=== PATIENT | male | born 1970 | race Caucasian/White ===

== ENCOUNTER 2019-12-25 18:56 | Emergency (ER) | payer OTHER, SELFPAY ==
--- NOTE | ~2019-12-25 | XR_ITS ---
EXAMINATION: XR hand LT min 3V EXAM DATE: 12/25/2019 19:31 INDICATION: Initial encounter following injury, with pain of the left hand. TECHNIQUE: Left hand frontal, lateral and oblique projections obtained and reviewed. There is no jose or study for comparison. FINDINGS: Acute comminuted fractures through the left fifth metacarpal neck/shaft. Closed, posttrauma tic fracture(s). There is overlying soft tissue swelling. No other acute findings. IMPRESSION: Acute comminuted left fifth metacarpal neck/shaft fracture. Reviewed, dictated and finalized at location A.
[2019-12-25 18:59] VITALS: BP 147/100; PULSE 68; RESP 18; TEMP 36.6; O2SAT 99
--- NOTE | 2019-12-25 19:25 | PC.NURSE ---
wound cleansed thoroughly with sterile saline. anbx gauze, telfa and kerlix wrap placed per nurse practitioner's request
--- NOTE | 2019-12-25 19:43 | ED.UPPEXIN ---
HPI - Extremity Injury (Upper) General Chief Complaint: Extremity Injury, Upper Stated Complaint: left hand lac Time Seen by Provider: 12/25/19 19:00 Source: patient Mode of arrival: ambulatory Limitations: no limitations History of Present Illness HPI narrative: This is a 49 year old male that presents to the ER for laceration to left hand sustained just prior to arrival. Reports he was trying to fix his garage door and the metal spring cut his hand. Reports irregular laceration and pain to the area. Reports he is up to date on tetanus. Denies decreased ROM or numbness. Related Data Allergies Allergy/AdvReac Type Severity Reaction Status Date / Time No Known Allergies Allergy Verified 12/25/19 19:31 Review of Systems Review of Systems: Narrative: CONSTITUTIONAL: Denies fever SKIN: Reports laceration MUSCULOSKELETAL: Reports joint pain, and myalgia. NEUROLOGIC: Denies numbness All systems reviewed & are unremarkable except as noted in HPI and below PMFSH Past Medical History Medical History (Updated 12/25/19 @ 22:34 by Maira Abreu PA-C) History of hyperlipidemia Family History Family History (Updated 04/23/16 @ 23:21 by DOCTOR UNKNOWN) Mother Patient's mother is in good health Sibling Patient's sister is in good health Patient's brother is in good health Father Family history of malignant neoplasm Patient's father is Social History Social History Smoking status: Heavy tobacco smoker Alcohol intake: current Exam Narrative: Exam Narrative: GENERAL: Well-appearing, well-nourished, and in no acute distress. HEAD: Normocephalic, atraumatic. EYES: EOMI. EXTREMITIES: Normal range of motion. No edema. Left hand dorsal surface with 4cm irregular laceration into subcutaneous tissue with muscle exposed. SKIN: Warm, dry, no rash. NEURO: No focal deficits. Alert and oriented x3. PSYCH: Normal mood and affect Course Consultations Consultation #1: Spoke with Dr. Brown about patient and work-up will follow-up in clinic tomorrow Date: 12/25/19 Time: 22:32 Vital Signs Vital signs: Vital Signs Temperature 97.9 F 12/25/19 18:59 Pulse Rate 68 12/25/19 18:59 Respiratory Rate 18 12/25/19 18:59 Blood Pressure 147/100 H 12/25/19 18:59 Pulse Oximetry 99 12/25/19 18:59 Temperature 97.9 F 12/25/19 18:59 Pulse Rate 68 12/25/19 18:59 Respiratory Rate 18 12/25/19 18:59 Blood Pressure 147/100 H 12/25/19 18:59 Pulse Oximetry 99 12/25/19 18:59 Procedures Laceration Laceration 1: Date: 12/25/19 Time: 22:19 Site: hand Side (If applicable): left Size (cm): 4 Description: irregular Depth: involves muscle layer Local Anesthetic: lidocaine 1% Amount of anesthesia used (mL): 4 Pre-repair: irrigated extensively ====== Skin Level ====== Skin layer closed with: nylon Size (cm): 5-0 Number of sutures: 8 Technique: simple, interrupted and horizontal mattress ====== Subcutaneous Layer ====== ====== Muscle Layer ====== ====== Tendon Layer ====== Dressing: Covered with antibiotic ointment, Telfa, Kerlix and Coban Orthopedic Splinting/Casting Injury #1: Splinting/Casting Date: 12/25/19 Splinting/Casting Time: 22:21 Side: left Upper Extremity Injury Location: hand Upper Extremity Immobilizer: ulnar gutter Splint: customized in ED OCL: ulnar gutter Pre-Procedure Neuro Vascular Exam: normal Post-Procedure Neuro Vascular Exam: normal Other Orthopedic Equipment: other (sling) MDM - Extremity Injury (Upper) MDM Narrative Medical decision making narrative: Patient presents the emergency department for laceration to left hand sustained just prior to arrival. Patient with irregular laceration with contused tissue. Left hand x-ray shows an acute comminuted left fifth metacarpal neck/sha
[2019-12-25] MEDS: ceFAZolin SODIUM 1 GM VIAL IM (20:27)
[2019-12-25] MEDS: WATER, STERILE FOR INJECTION 10 ML VIAL XX (20:28)
[2019-12-25] MEDS: LIDOCAINE HCL 1% LOCAL INJ 20 ML VIAL INFILTRATE (20:28)
[2019-12-25] MEDS: IBUPROFEN 600 MG TABLET PO (22:41)
[2019-12-25 22:43] VITALS: BP 151/90; PULSE 70; RESP 18; O2SAT 99
== END 2019-12-25 22:45 | disposition home or self-care (01) ==
PROVIDERS: Emergency Provider Emergency Medicine
DX: S62.337B Displaced fracture of neck of fifth metacarpal bone, left hand, initial encounter for open fracture (principal); W26.8XXA Contact with other sharp object(s), not elsewhere classified, initial encounter; E78.5 Hyperlipidemia, unspecified
CPT/HCPCS: 12002; 29125; 73130; 96372; 99284; A4565; A9270; J0690

== ENCOUNTER 2021-01-19 03:35 | Emergency (ER) | payer OTHER, SELFPAY ==
--- NOTE | ~2021-01-19 | CT_ITS ---
EXAMINATION: CT abdomen pelvis wo con DATE: 01/19/2021 04:06 INDICATION: Left flank pain. TECHNIQUE: Computed tomography (CT) of the abdomen and pelvis was performed without intravenous contr ast. Automated exposure control and iterative reconstruction technique were employed. The dose-length product was 472.69 mGy-cm. COMPARISON: None. FINDINGS: The visualized portions of the lung bases demonstrate mild atelectasis. No pleural effusion . The heart size is normal. No pericardial effusion. There is a small sliding hiatal hernia. The live r, gallbladder, spleen, pancreas, adrenal glands are normal. There are 4 mm and 1 mm stones in right kidney. There are approximately 7 stones in left kidney measuring up to 9 mm. There is mild left hydr onephrosis and proximal hydroureter. There is a 5 mm stone in left ureter where it crosses the iliac vessels. The prostate is mildly enlarged. There are no dilated loops of bowel. The appendix is normal . There are no pathologically enlarged lymph nodes. There is no free intraperitoneal fluid. There is mild thoracolumbar spondylosis. IMPRESSION: 1. 5 mm stone in mid left ureter where it crosses the iliac vessels with mild left hydronephrosis and proximal hydroureter. 2. Bilateral nonobstructing kidney stones. Reviewed, dictated and finalized at location A. IMPRESSION: 1. 5 mm stone in mid left ureter where it crosses the iliac vessels with mild l eft hydronephrosis and proximal hydroureter. 2. Bilateral nonobstructing kidney stones.
[2021-01-19 03:38] VITALS: BP 145/91; PULSE 82; RESP 16; TEMP 36.4; O2SAT 100
[2021-01-19 03:50] VITALS: BP 145/91; PULSE 82; RESP 18; TEMP 36.4; O2SAT 100
--- NOTE | 2021-01-19 03:54 | PC.NURSE ---
Pt to restroom to provide UA.
--- NOTE | 2021-01-19 03:54 | ED.GENADULT ---
HPI - General Adult General Chief complaint: Abdominal Pain Stated complaint: L SIDE PAIN Time Seen by Provider: 01/19/21 03:47 History of Present Illness HPI narrative: Patient is a 51-year-old gentleman who presents the emergency department with chief complaint of left flank pain. The patient states that he started having a sharp-like pain in his left flank radiates somewhat to the left lower quadrant patient stated started on Tuesday reports that he has had some nausea no vomiting reports that is unable to get comfortable with the pain states that is not really worsened by movement or improved by movement. Patient denies fever denies chills denies diarrhea. The patient states it feels as though he needs to have a bowel movement but has not been able to have a bowel movement. Patient reports he is a no prior history of kidney stones. The patient reports that the pain was improved with an 800 mg ibuprofen that he took on Tuesday Related Data Home Medications Medication Instructions Recorded Confirmed atorvastatin 01/19/21 ibuprofen 01/19/21 Allergies Allergy/AdvReac Type Severity Reaction Status Date / Time No Known Allergies Allergy Verified 12/25/19 19:31 Review of Systems Review of Systems: Narrative: A 10 system review of systems was completed on the patient and is negative except for what is stated in the HPI. Nursing and ancillary documentation was reviewed. [facility] Past Medical History Medical History History of hyperlipidemia Family History Family History Mother Patient's mother is in good health Sibling Patient's sister is in good health Patient's brother is in good health Father Family history of malignant neoplasm Patient's father is Social History Social History Smoking status: Heavy tobacco smoker Alcohol intake: current Exam Narrative: Exam Narrative: GENERAL: Well-appearing, well-nourished, and in no acute distress. HEAD: Normocephalic, atraumatic. EYES: PERRLA and EOMI. ENT: Nares clear, no rhinorrhea or epistaxis. Mucous membranes moist. NECK: Supple. CHEST: Clear to auscultation. No respiratory distress. HEART: Regular rate and rhythm. No murmur heard. Normal peripheral pulses. ABDOMEN: Soft, nontender, nondistended, normal active bowel sounds. EXTREMITIES: Normal range of motion. No edema. SKIN: Warm, dry, no rash. NEURO: No focal deficits. Alert and oriented x3. PSYCH: Normal mood and affect. Course Course Emergency Course: CT scan showed evidence of a 6 mm mid to distal left ureter with mild left hydronephrosis. The patient is feeling much better at this time Vital Signs Vital signs: Vital Signs Temperature 36.4 C L 01/19/21 03:38 Pulse Rate 82 01/19/21 03:38 Respiratory Rate 16 01/19/21 03:38 Blood Pressure 145/91 H 01/19/21 03:38 Pulse Oximetry 100 01/19/21 03:38 Temperature 36.4 C L 01/19/21 04:20 Pulse Rate 70 01/19/21 05:22 Respiratory Rate 18 01/19/21 05:22 Blood Pressure 131/82 01/19/21 05:22 Pulse Oximetry 94 01/19/21 05:22 Medical Decision Making Vital Signs Vital Signs: Vital Signs Temperature 36.4 C L 01/19/21 03:38 Pulse Rate 82 01/19/21 03:38 Respiratory Rate 16 01/19/21 03:38 Blood Pressure 145/91 H 01/19/21 03:38 Pulse Oximetry 100 01/19/21 03:38 Temperature 36.4 C L 01/19/21 04:20 Pulse Rate 70 01/19/21 05:22 Respiratory Rate 18 01/19/21 05:22 Blood Pressure 131/82 01/19/21 05:22 Pulse Oximetry 94 01/19/21 05:22 Lab Data Result diagrams: 01/19/21 04:32 01/19/21 04:32 Labs: Lab Results 01/19/21 01/19/21 01/19/21 Range/Units 03:56 04:32 04:32 WBC 12.9 H (4.5-10.0) K/mm3 RBC 4.68 (4.6-6.20) M/mm3 Hgb 15.1 (14.
--- NOTE | 2021-01-19 03:58 | PC.NURSE ---
Pt in room from restroom. Steady gait noted.
--- NOTE | 2021-01-19 04:00 | PC.NURSE ---
Pt to radiology via cart.
--- NOTE | 2021-01-19 04:14 | PC.NURSE ---
Pt returned from radiology.
[2021-01-19 04:19] LABS: Add Urine Microscopic? YES; Appearance Urine Cloudy (Clear); Bacteria Urine Trace /hpf; Bilirubin Urine Negative (Negative); Blood Urine 3+ (Negative); Color Urine Yellow (Yellow); Glucose Urine UA Negative (Negative); Ketones Urine Negative (Negative); Leukocyte Esterase Ur Negative LEU/UL (Negative); Mucus Urine Few /lpf; Nitrate Urine Negative (Negative); Protein Urine 1+ mg/dL (Negative); RBC Urine >75 /hpf (0-2); Squamous Epithelial Cell Urine Rare /hpf (Few)
[2021-01-19 04:20] VITALS: BP 145/91; PULSE 82; RESP 18; TEMP 36.4; O2SAT 100
[2021-01-19] MEDS: SODIUM CHLORIDE 0.9% IV 1,000 ML 999 ML IV CONT (04:26)
[2021-01-19] MEDS: ONDANSETRON INJ 4 MG/2 ML VIAL IV PUSH (04:31)
[2021-01-19] MEDS: MORPHINE SULFATE (*CRX) 4 MG/ML INJ IV PUSH (04:31)
[2021-01-19 04:51] LABS: Basophils Percent Auto 0.2 % (0.2-1.2); Eosinophils Absolute Auto 0.2 K/mm3 (0-0.3); Eosinophils Percent Auto 1.4 % (0-4.4); Hematocrit 45.4 % (42.0-52.0); Hemoglobin 15.1 g/dL (14.0-18.0); Immature Granulocyte Absolute 0.05 K/mm3 (0.00-0.031); Immature Granulocyte Percent A 0.4 % (0-0.5); Lymphocytes Absolute Auto 2.61 K/mm3 (0.9-3.2); Lymphocytes Percent Auto 20.2 % (18.3-44.2); Mean Corpuscular HGB Conc 33.3 g/dl (32-36); Mean Corpuscular Hemoglobin 32.3 pg (26-34); Mean Platelet Volume 9.5 fl (7.4-10.4); Monocytes Absolute Auto 0.9 K/mm3 (0.1-0.6); Monocytes Percent Auto 7.2 % (2.6-8.5); Neutrophils Absolute Auto 9.1 K/mm3 (1.3-6.7); Neutrophils Percent Auto 70.6 % (45.5-73.1); Platelet Count Result 257 k/mm3 (150-375); Red Blood Count 4.68 M/mm3 (4.6-6.20); Red Cell Distribution Width 13.1 % (11.5-14.5); White Blood Count 12.9 K/mm3 (4.5-10.0)
[2021-01-19 04:53] LABS: Alanine Aminotransferase 17 U/L (4-50); Albumin Level 4.1 g/dL (3.5-5.1); Alkaline Phosphatase 79 U/L (38-126); Anion Gap 4 mmol/L (8-16); Aspartate Amino Transferase 24 U/L (17-59); Bilirubin,Total 0.5 mg/dL (0.2-1.3); Blood Urea Nitrogen 15 mg/dL (9-20); Carbon Dioxide 31 mmol/L (22-30); Chloride 104 mmol/L (98-107); Estimated CRCL calculation 69 ml/min; Estimated Glomerular Filt Rate > 60; Glucose 106 mg/dL (75-110); Lipase 81 U/L (23-300); Potassium 4.1 mmol/L (3.4-5.0); Sodium 139 mmol/L (137-145)
--- NOTE | 2021-01-19 04:53 | PC.NURSE ---
Pt states abdominal pain persists and is rated 5/10 at this time. EDMD notified and states he will place orders.
--- NOTE | 2021-01-19 04:59 | PC.NURSE ---
Senior Production Manager returned to bedside and pt states pain is now a 1-2/10 at this time and is refusing pain medication. Will hold.
[2021-01-19 05:22] VITALS: BP 131/82; PULSE 70; RESP 18; O2SAT 94
--- NOTE | 2021-01-19 05:53 | PC.NURSE ---
Pt continues to deny pain and states he feels much better. Pt updated on poc and advised that he has kidney stones and should strain all urine.
[2021-01-19 06:05] VITALS: BP 128/84; PULSE 73; RESP 16; TEMP 36.9; O2SAT 97
== END 2021-01-19 06:12 | disposition home or self-care (01) ==
PROVIDERS: Emergency Provider Emergency Medicine
DX: N13.2 Hydronephrosis with renal and ureteral calculous obstruction (principal); E78.5 Hyperlipidemia, unspecified; F17.200 Nicotine dependence, unspecified, uncomplicated
CPT/HCPCS: 36415; 74176; 80053; 81001; 83690; 85025; 87086; 96361; 96374; 96375; 99284; J2270; J2405; J7030

== ENCOUNTER 2021-01-20 15:05 | Outpatient (CLI) | payer OTHER, SELFPAY ==
--- NOTE | ~2021-01-20 | XR_ITS ---
XR abdomen/kub 1V 01/20/2021 15:20 Indication: Left ureteral stone Procedure: KUB Comparison: CT dated 01/19/2021 Findings: Bowel gas pattern is nonobstructive. There are left renal stones. There is a ossific densit y overlying the left sacrum which may correspond to the ureteral stone seen on CT. No acute osseous a bnormality. Impression: 1: Probable left ureteral stone overlying the sacrum. 2: Left nephrolithiasis. Reviewed, dictated and finalized at location B. Impression: 1: Probable left ureteral stone overlying the sacrum. 2: Left nephrolithiasis.
== END 2021-01-20 15:06 | disposition home or self-care (01) ==
PROVIDERS: Visit Provider Nurse Practitioner Adult Health
DX: N20.1 Calculus of ureter (principal); N20.0 Calculus of kidney
CPT/HCPCS: 74018

== ENCOUNTER → 2021-01-27 01:56 | Outpatient (CLI) | payer OTHER, SELFPAY ==
[2021-01-27 19:24] LABS: SARS-CoV-2 RNA PCR Negative
== END ==
PROVIDERS: PCP Physician Assistant; Visit Provider Urology
DX: Z01.812 Encounter for preprocedural laboratory examination (principal); Z20.822 Contact with and (suspected) exposure to COVID-19
CPT/HCPCS: C9803; U0003; U0005

== ENCOUNTER 2021-01-27 09:39 | Outpatient (CLI) | payer OTHER, SELFPAY ==
[2021-01-27 10:26] LABS: INR 0.9; Prothrombin Time 13.1 Seconds (11.1-14.7)
[2021-01-27 10:27] LABS: Partial Thromboplastin Time 28.2 SECONDS (22.3-36.8)
--- NOTE | 2021-01-27 14:30 | ECG_ITS ---
Measurements Intervals [place] Rate: 76 P: 36 OR: 148 QRS: 32 QRSD: 103 T: 7 QT: 353 QTc: 398 Interpretive Statements SINUS RHYTHM BORDERLINE ST-T WAVE ABNORMALITY- INFERIOR LEADS BASELINE ARTIFACT- I, III, AVR, AVL BORDERLINE ECG Electronically Signed On 01-27-2021 11:04:54 CDT by Varun Dior D.O.
== END 2021-01-27 09:40 | disposition home or self-care (01) ==
LOC: ANHSURGERY 09:43
PROVIDERS: PCP Physician Assistant; Visit Provider Urology
DX: Z01.818 Encounter for other preprocedural examination (principal); N20.1 Calculus of ureter; Z86.39 Personal history of other endocrine, nutritional and metabolic disease
CPT/HCPCS: 36415; 85610; 85730; 93005

== ENCOUNTER 2021-01-30 01:39 | Day surgery (SDC) | payer OTHER, SELFPAY ==
[2021-01-26 09:26] VITALS: BMI 26.5
--- NOTE | 2021-01-29 10:24 | WPDANESEPPF ---
Anes - Initial Pre Proc Eval Procedure: Operation Date: 01/30/21 08:30 Proposed Procedures p Left Ureteral Extracorporeal Shock Wave Lithotripsy - Mohit Boo MD Date/Time: 01/29/21 10:24 Surgeon: Mohit Boo MD Pre Op Diagnosis: left midureteral stone Patient Data Age: 51 Gender: M Height: 1.78 m Weight: 83.9 kg Allergies Allergy/AdvReac Type Severity Reaction Status Date / Time No Known Allergies Allergy Verified 01/26/21 09:25 Home Medications Medication Instructions Recorded Confirmed Type atorvastatin 40 mg PO HS 01/19/21 History tamsulosin [Flomax] 0.4 mg PO HS #10 cap 01/19/21 01/26/21 Rx Patient hx anesthesia problems: none Family hx anesthesia problems: none PMFSH Past Medical History Medical History History of hyperlipidemia Family History Family History Mother Patient's mother is in good health Sibling Patient's sister is in good health Patient's brother is in good health Father Family history of malignant neoplasm Patient's father is Social History Social History Smoking packs per day: 1 Smoking cigarettes per day: 20.0 Years smoked: 20 Smoking pack-years: 20.00 Smoking status: Current every day smoker Tobacco type: cigarettes Alcohol intake: current Drinks per week: 10 Substance use: never Substance use type: does not use Living arrangements: with family Spiritual care concerns: No Anes - Eval Final PreProcedure Day of Procedure 01/29/21 10:24 Patient weight: overweight Heart: regular rate and rhythm Lungs: clear to auscultation and normal air movement Airway: Mallampati scale class II Neurological: alert and oriented Last oral intake: >/= 8 hours ASA classification: III Emergent: no Anesthetic plan: proceed Anesthesia type and monitoring: general LMA and standard monitoring Informed Consent: The patient's anesthetic plan and its attendant risks and benefits were discussed with the patient/family/POA. Questions were solicited and answers provided to the satisfaction of the patient/family/POA.
[2021-01-30] VITALS (8 sets, daily range): BP systolic 112–168; BP diastolic 73–101; PULSE 58–81; RESP 10–20; TEMP 36.4–36.9; O2SAT 97–100
--- NOTE | ~2021-01-30 | XR_ITS ---
EXAMINATION: XR abdomen/kub 1V INDICATION: Left ureteral stone TECHNIQUE: Supine views of the abdomen were obtained on 2 radiographs. COMPARISON: 01/20/2021 FINDINGS: There is a questionable 4 mm stone of the distal left ureter overlying the left sacrum. Sto julio césar in the mid and lower left kidney measure 8 mm and 5 mm, respectively. There is a 5 mm stone of th e right mid kidney. The bowel gas pattern is normal. There are multiple phleboliths of the pelvis. IMPRESSION: 1. Possible left distal ureteral stone. 2. Bilateral nephrolithiasis. Reviewed, dictated and finalized at location A.
--- NOTE | 2021-01-30 06:20 | WPDHPUPDATE1 ---
History and Physical Update Update Date/Time: 01/30/21 06:20 History and Physical has been reviewed, including an updated exam of the patient. There are NO changes in the patient's condition. Risks, benefits, and alternatives have been discussed and questions answered. Patient agrees to proceed with procedure.
[2021-01-30] MEDS: LACTATED RINGERS 1,000 ML 30 ML IV CONT (07:20)
[2021-01-30] MEDS: ceFAZolin 2 GM/D5W 50 ML 2 GM/50 ML BAG IVPB (08:25)
--- NOTE | 2021-01-30 08:28 | SUR.PREOP ---
films at foot of bed denied need to void
--- NOTE | 2021-01-30 08:39 | PM.PROC ---
Procedure Note - Detailed Date of procedure: 01/30/21 Pre-op diagnosis: Left mid-ureteral stone Post-op diagnosis: same Procedure performed: Left ESWL Description of procedure: The patient was brought to the operative suite where he was placed in the supine position on the Dornier lithotripsy table. The focal point of the lithotripter was placed at a 5-6mm left mid-ureteral calculus overlying the sacrum. A total of 3000 shocks were delivered at a power setting of 5. There appeared to be good fragmentation of the stone. The patient tolerated the procedure well and was taken to the recovery room in good condition. Anesthesia: GLMA Surgeon: Mohit Boo MD Estimated blood loss (mL): 0 Drains: No Packing: No Pathology: none sent Complications: No immediate complications Condition: stable Disposition: PACU
== END 2021-01-30 10:55 | disposition home or self-care (01) ==
PROVIDERS: PCP Physician Assistant; Visit Provider Urology
PROC: (CPT 50590; principal; 2021-01-30 08:30)
DX: N20.1 Calculus of ureter (principal); F17.210 Nicotine dependence, cigarettes, uncomplicated
CPT/HCPCS: 50590; 36415; 74018; 85610; 85730; 93005; C9803; J0690; J2250; J2405; J2704; J3010; J7120; U0003; U0005

== ENCOUNTER 2021-02-25 16:11 | Outpatient (CLI) | payer OTHER, SELFPAY ==
--- NOTE | ~2021-02-25 | XR_ITS ---
XR abdomen/kub 1V DATE: 02/25/2021 16:30 INDICATION: Left ureteral stone TECHNIQUE: AP projection, 2 views COMPARISON: 01/30/2021, 01/20/2021 KUB KUB / CT abdomen pelvis noncontrast examination FINDINGS: There are multiple calcifications overlying the lower pole left kidney and at least one hussain cification overlying the mid right kidney. Possible calcified calculus overlying the left ureter at the S2 level. Noncontrast CT abdomen pelvis would be more definitive. The psoas shadows are intact. No visceromegaly is evident. There is no evidence of bowel obstruction. The lower lung zones are clear. Heart size appears normal. Mild scoliosis and degenerative change of the thoracic and lumbar spine. IMPRESSION: Possible calcified left ureteral calculus at S2 level; noncontrast CT abdomen pelvis woul d be more definitive Bilateral nephrolithiasis Reviewed, dictated and finalized at Location A. Reviewed, dictated and finalized at location A. IMPRESSION: Possible calcified left ureteral calculus at S2 level; noncontrast CT abdomen pelvis would be more definitive Bilateral nephrolithiasis
== END 2021-02-25 16:12 | disposition home or self-care (01) ==
LOC: ANHIMG 16:16
PROVIDERS: PCP Physician Assistant; Visit Provider Nurse Practitioner Adult Health
DX: N20.0 Calculus of kidney (principal)
CPT/HCPCS: 74018

== ENCOUNTER 2022-04-08 07:36 | Emergency (ER) | payer OTHER, SELFPAY ==
--- NOTE | ~2022-04-08 | CT_ITS ---
EXAMINATION: CT abdomen pelvis wo con DATE: 04/08/2022 08:24 INDICATION: Nephrolithiasis. TECHNIQUE: Computed tomography (CT) of the abdomen and pelvis was performed without intravenous contr ast. Automated exposure control and iterative reconstruction technique were employed. The dose-length product was 354.78 mGy-cm. COMPARISON: CT abdomen and pelvis 01/19/2021 FINDINGS: The visualized portions of the lung bases demonstrate mild atelectasis on the left. No pleu ral effusion. The heart size is normal. No pericardial effusion. The liver, gallbladder, spleen, panc reas, and adrenal glands are normal. There is a 5 mm stone in right kidney. There are 5 mm and 11 mm stones in left kidney. The prostate is mildly enlarged. There are no dilated loops of bowel. The appe ndix is normal. There are no pathologically enlarged lymph nodes. There is no free intraperitoneal fl uid. There is mild lumbar spondylosis. IMPRESSION: 1. Bilateral nonobstructing kidney stones. Reviewed, dictated and finalized at location A.
--- NOTE | ~2022-04-08 | XR_ITS ---
XR abdomen/kub 1V DATE: 04/08/2022 09:08 INDICATION: Dysuria. Kidney stones. TECHNIQUE: Supine AP projection, 2 views COMPARISON: 04/08/[address] abdomen pelvis 02/25/2021 KUB FINDINGS: Again noted is an approximately 5 mm calcified calculus of the mid right kidney and possibl e 5 mm and 11 mm calcified calculi of the lower pole of the left kidney. Bilateral calcified pelvic phleboliths. The psoas shadows are intact. No visceromegaly is detected. No evidence of bowel obstruction. IMPRESSION: Bilateral nephrolithiasis, relatively stable since 02/25/2021 Reviewed, dictated and finalized at Location A. Reviewed, dictated and finalized at location A.
[2022-04-08 07:38] VITALS: BP 125/80; PULSE 117; RESP 18; TEMP 36.8; O2SAT 98
--- NOTE | 2022-04-08 07:51 | ED.MALEGU ---
HPI - Male Genitourinary General Chief complaint: Urogenital-Male Stated complaint: Fever, Difficulty with Urination Time Seen by Provider: 04/08/22 07:51 History of Present Illness HPI Narrative: Patient is a 52-year-old male with a history of nephrolithiasis, urinary tract infection, sepsis, presenting to the emergency department for evaluation of fever, myalgias, difficulty with urination. Patient reports that he has felt unwell over the past 36 hours. Patient reports subjective fever, chills, myalgias, denies any sharp flank pain. Does report he is having some difficulty with urination including hesitancy. Patient has not noticed any hematuria. Patient reports history of sepsis from a kidney stone and urinary tract infection for which he was hospitalized approximately a year ago. Patient did take 400 mg ibuprofen prior to arrival. He reports mild rhinorrhea but denies cough, sore throat, sinus congestion. He reports history of asymptomatic COVID infection approximately a year ago for which she did not require hospitalization. Related Data Home Medications Medication Instructions Recorded Confirmed atorvastatin 40 mg tablet 40 mg PO HS 01/19/21 Allergies Allergy/AdvReac Type Severity Reaction Status Date / Time No Known Allergies Allergy Verified 04/08/22 07:55 Review of Systems Review of Systems: CONSTITUTIONAL: Denies fever, chills, or sweats. EYES: Denies visual changes, redness, or discharge. ENT: Denies rhinorrhea, congestion, sore throat, or otalgia. CARDIOVASCULAR: Denies chest pain, palpitations, or edema. RESPIRATORY: Denies cough or dyspnea. GASTROINTESTINAL: Denies abdominal pain, nausea, vomiting, or diarrhea. GENITOURINARY: Denies dysuria or hematuria. SKIN: Denies rash or itching. MUSCULOSKELETAL: Denies back pain, joint pain, or myalgia. NEUROLOGIC: Denies headache, numbness, or weakness. ON LICENSE OF [facility] Past Medical History Medical History History of hyperlipidemia Family History Family History Mother Patient's mother is in good health Sibling Patient's sister is in good health Patient's brother is in good health Father Family history of malignant neoplasm Patient's father is Social History Social History Smoking packs per day: 1 Smoking cigarettes per day: 20.0 Years smoked: 20 Smoking pack-years: 20.00 Smoking status: Current every day smoker Tobacco type: cigarettes Alcohol intake: current Drinks per week: 10 Substance use: never Substance use type: does not use Spiritual care concerns: No Course Vital Signs Vital signs: Vital Signs Temperature 36.8 C 04/08/22 07:38 Pulse Rate 117 H 04/08/22 07:38 Respiratory Rate 18 04/08/22 07:38 Blood Pressure 125/80 04/08/22 07:38 Pulse Oximetry 98 04/08/22 07:38 Oxygen Delivery Room Air 04/08/22 07:38 Temperature 36.8 C 04/08/22 07:38 Pulse Rate 105 H 04/08/22 08:46 Respiratory Rate 18 04/08/22 08:46 Blood Pressure 131/83 04/08/22 08:46 Pulse Oximetry 99 04/08/22 08:46 Oxygen Delivery Room Air 04/08/22 07:38 MDM - Male Genitourinary MDM Narrative Medical decision making narrative: Patient presenting to the emergency department for evaluation of difficulty with urination, fever and myalgias. At the time of assessment, patient is mildly tachycardic, he is afebrile and normotensive. IV access obtained and labs are drawn. Concern for sepsis versus UTI versus pyelonephritis versus cystitis versus prostatitis. Patient with leukocytosis without anemia, no acute kidney injury. Urinalysis is concerning for urinary tract infection, CT scan was obtained and shows bilateral nonobstructing kidney stones. Dr. Patinos with urology was present in the emergency department evaluating a
--- NOTE | 2022-04-08 07:53 | ECG_ITS ---
Measurements Intervals [place] Rate: 103 P: 48 AK: 153 QRS: 12 QRSD: 88 T: 4 QT: 308 QTc: 404 Interpretive Statements SINUS TACHYCARDIA POSSIBLE LEFT ATRIAL ENLARGEMENT BORDERLINE ST-T WAVE ABNORMALITY- INFERIOR LEADS BASELINE ARTIFACT- I, II, III, V3 BORDERLINE ECG Electronically Signed On 04-08-2022 9:24:28 CDT by Varun Dior D.O.
[2022-04-08 07:59] LABS: Appearance Urine Cloudy (Clear); Bilirubin Urine Negative (Negative); Blood Urine 2+ (Negative); Color Urine Yellow (Yellow); Glucose Urine UA Negative (Negative); Ketones Urine Negative (Negative); Leukocyte Esterase Ur 1+ LEU/UL (Negative); Nitrate Urine Negative (Negative); Protein Urine 1+ mg/dL (Negative); Specific Grav Ur 1.025 (1.001-1.035); pH Urine 6.5 (5.0-9.0)
[2022-04-08 08:02] LABS: Bacteria Urine 2+ /hpf; Mucus Urine Heavy /lpf; WBC Urine 51-75 /hpf
[2022-04-08 08:03] LABS: Add Urine Microscopic? YES
[2022-04-08] MEDS: ACETAMINOPHEN 500 MG TABLET 1000 MG PO (08:15)
[2022-04-08] MEDS: SODIUM CHLORIDE 0.9% IV 1,000 ML 999 ML IV CONT (08:15)
[2022-04-08 08:20] LABS: Basophils Percent Auto 0.2 % (0.2-1.2); Eosinophils Absolute Auto 0.1 K/mm3 (0-0.3); Eosinophils Percent Auto 0.7 % (0-4.4); Hematocrit 43.3 % (42.0-52.0); Hemoglobin 14.4 g/dL (14.0-18.0); Immature Granulocyte Absolute 0.08 K/mm3 (0.00-0.031); Immature Granulocyte Percent A 0.5 % (0-0.5); Lymphocytes Absolute Auto 1.23 K/mm3 (0.9-3.2); Lymphocytes Percent Auto 7.8 % (18.3-44.2); Mean Corpuscular HGB Conc 33.3 g/dl (32-36); Mean Corpuscular Hemoglobin 32.4 pg (26-34); Mean Corpuscular Volume 97.3 fl (80-100); Mean Platelet Volume 9.4 fl (7.4-10.4); Monocytes Absolute Auto 0.9 K/mm3 (0.1-0.6); Monocytes Percent Auto 5.4 % (2.6-8.5); Neutrophils Absolute Auto 13.5 K/mm3 (1.3-6.7); Neutrophils Percent Auto 85.4 % (45.5-73.1); Platelet Count Result 208 k/mm3 (150-375); Red Blood Count 4.45 M/mm3 (4.6-6.20); Red Cell Distribution Width 13.2 % (11.5-14.5); White Blood Count 15.8 K/mm3 (4.5-10.0)
[2022-04-08 08:30] LABS: Alanine Aminotransferase 18 U/L (6-50); Albumin Level 4.1 g/dL (3.5-5.1); Alkaline Phosphatase 86 U/L (38-126); Anion Gap 5 mmol/L (8-16); Aspartate Amino Transferase 20 U/L (17-59); Bilirubin,Total 0.5 mg/dL (0.2-1.3); Blood Urea Nitrogen 15 mg/dL (9-20); Calcium 8.3 mg/dL (8.4-10.2); Carbon Dioxide 23 mmol/L (22-30); Chloride 108 mmol/L (98-107); Estimated CRCL calculation 89 ml/min; Estimated Glomerular Filt Rate > 60; Glucose 115 mg/dL (65-110); Potassium 4.4 mmol/L (3.4-5.0); Sodium 136 mmol/L (137-145)
[2022-04-08 08:40] VITALS: BP 126/82; PULSE 107; RESP 21; O2SAT 98
[2022-04-08 08:46] VITALS: BP 131/83; PULSE 105; RESP 18; O2SAT 99
--- NOTE | 2022-04-08 08:52 | WPDURCON ---
Assessment and Plan Assessment and plan (1) Bilateral kidney stones: Code(s): N20.0 - Calculus of kidney Status: Acute (2) Acute prostatitis: Code(s): N41.0 - Acute prostatitis Status: Acute Assessment and Plan: Clinical presentation consistent with acute prostatitis. His kidney stones are nonobstructive and, I suspect, not contributing to his overall picture of infection at this point. Agree with admission and empirically starting ceftriaxone. I will also add tamsulosin (short term) to enhance bladder emptying in the face of probable prostate swelling leading to difficulty voiding. We discussed lithotripsy for his nonobstructing kidney stones at an elective time. Urology Consult Note HPI Date Seen: 04/08/22 Primary Care Provider: Shanda Cheney, PA Consult Narrative Narrative: Ramon Harris is a 52 year old male, known to me as result of lithotripsy a couple years ago, presents to the ER with a 48 hour history of generalized malaise fever and obstructive voiding symptoms. This curve without identifiable precipitating injury or strain. Somewhat surprisingly, he has had little irritable voiding symptoms but clearly perceives difficulty emptying. evaluation in the emergency department reveals infected urine with a leukocytosis. A CT scan of the abdomen and pelvis shows bilateral nonobstructed kidney stones. Review of Systems Cardiovascular: Cardiovascular: Denies chest pain, Denies lightheadedness, Denies palpitations and Denies dyspnea Respiratory: Respiratory: Denies dyspnea Gastrointestinal: Gastrointestinal: Denies diarrhea, Denies nausea and Denies vomiting Genitourinary: Genitourinary: Denies hematuria, Reports oliguria, Denies dysuria, Denies flank pain and Reports urinary hesitancy Endocrine: Endocrine: Denies palpitations PMFSH Past Medical History Medical History History of hyperlipidemia Family History Family History Mother Patient's mother is in good health Sibling Patient's sister is in good health Patient's brother is in good health Father Family history of malignant neoplasm Patient's father is Social History Social History Smoking packs per day: 1 Smoking cigarettes per day: 20.0 Years smoked: 20 Smoking pack-years: 20.00 Smoking status: Current every day smoker Tobacco type: cigarettes Alcohol intake: current Drinks per week: 10 Substance use: never Substance use type: does not use Spiritual care concerns: No Meds Home Medications and Allergies Home Medications Medication Instructions Recorded Confirmed Type atorvastatin 40 mg tablet 40 mg PO HS 01/19/21 History tamsulosin 0.4 mg capsule (Flomax) 0.4 mg PO HS #10 caps 01/19/21 01/26/21 Rx hydrocodone 5 mg-acetaminophen 325 1 - 2 tablet PO Q6H PRN pain #20 01/30/21 Rx mg tablet tabs sulfamethoxazole 800 1 tablet PO Q12H #6 tabs 01/30/21 Rx mg-trimethoprim 160 mg tablet Allergies Allergy/AdvReac Type Severity Reaction Status Date / Time No Known Allergies Allergy Verified 04/08/22 07:55 Vital Signs Vital Signs - 24 hr 04/08/22 07:38 Temperature 98.2 F Pulse Rate 117 H Respiratory Rate 18 Blood Pressure 125/80 Pulse Oximetry 98 Oxygen Delivery Room Air Exam Const: General: no acute distress Resp: Effort & Inspection: normal respiratory effort GI: Inspection: non-distended GI Palp: No abdominal tenderness and No Guarding due to palpation present (GI) Auscultation: normal bowel sounds Results Labs CBC & Chem 7: 04/08/22 08:01 04/08/22 08:01 Labs: Short CBC 04/08/22 Range/Units 08:01 WBC 15.8 H (4.5-10.0) K/mm3 Hgb 14.4 (14.0-18.0) g/dL Hct 43.3 (42.0-52.0) % Plt Count
[2022-04-08] MEDS: cefTRIAXone 2 GM in SODIUM CHLORIDE 0.9% IV 100 ML 200 ML IVPB (09:02)
[2022-04-08] MEDS: TAMSULOSIN HCL 0.4 MG CAPSULE PO (09:14)
[2022-04-08 09:24] LABS: SARS-CoV-2 RNA PCR Negative
[2022-04-08 09:46] VITALS: BP 120/84; PULSE 89; RESP 0; O2SAT 98
[2022-04-08 10:20] VITALS: BP 116/77; PULSE 95; RESP 16; O2SAT 97
== END 2022-04-08 10:30 | disposition home or self-care (01) ==
PROVIDERS: Emergency Provider Emergency Medicine; PCP Physician Assistant
DX: N41.0 Acute prostatitis (principal); N20.0 Calculus of kidney; Z20.822 Contact with and (suspected) exposure to COVID-19; E78.5 Hyperlipidemia, unspecified; Z86.16 Personal history of COVID-19; F17.210 Nicotine dependence, cigarettes, uncomplicated; Z87.442 Personal history of urinary calculi; R00.0 Tachycardia, unspecified; R94.31 Abnormal electrocardiogram [ECG] [EKG]
CPT/HCPCS: 36415; 74018; 74176; 80053; 81001; 83605; 85025; 87040; 87077; 87086; 87147; 87181; 87186; 93005; 96361; 96365; 99284; A9270; C9803; J0696; J7030; U0003; U0005

== ENCOUNTER 2022-05-17 09:23 | Outpatient (CLI) | payer OTHER, SELFPAY ==
[2022-05-17 10:13] LABS: Prothrombin Time 12.8 Seconds (11.1-14.7)
[2022-05-17 10:14] LABS: Partial Thromboplastin Time 26.8 SECONDS (22.3-36.8)
== END 2022-05-17 09:24 | disposition home or self-care (01) ==
PROVIDERS: PCP Physician Assistant; Visit Provider Urology
DX: N20.0 Calculus of kidney (principal); Z01.818 Encounter for other preprocedural examination
CPT/HCPCS: 36415; 85610; 85730; 87086

== ENCOUNTER 2022-05-21 01:36 | Day surgery (SDC) | payer OTHER, SELFPAY ==
--- NOTE | 2022-05-13 15:54 | SUR.PREOP ---
Report to the Outpatient Waiting Room, entrance under the green pavilion located off [facility], at time 0930 on date 05/21/22. OR Time: 1130. - You and your visitor will be asked to self-screen and do not enter if you have any COVID symptoms. - Only one visitor and NO children visitors are allowed at this time. - The patient visitor is requested to leave or wait in car when not with patient due to restrictions. - A mask is required within the hospital. Patients may have clear liquids (water, carbonated beverages, clear teas, apple juice) until 3 hours prior to surgery with a maximum of 20 ounces. - NO CLEAR LIQUIDS AFTER 0830 - No food from midnight until time of surgery - Infants may have breast milk until 4 hours before surgery, infant formula 6 hours prior to surgery. - Children will be allowed to drink immediately following surgery. If applicable, please bring a bottle or sippy cup to assist with drinking. Juice, water, soda, and popsicles are readily available. For infants on formula, please bring formula the day of surgery. Pacifiers are allowed. Take the following medications with a SIP of water the morning of surgery: HYDROCODONE Please no make-up, nail georgian, hairspray, perfume, deodorant, or body powder the day of surgery. No jewelry (including any body piercings) or valuables the day of surgery, leave them at home. Please take a shower or bath the night before, or the morning of, surgery with an antibacterial soap. Wear comfortable, loose fitting clothing. Children are encouraged to wear pajamas. - Jewelry must be removed prior to entering the operating room. Rings and piercings that are not removed may be cut off. - The hospital will not accept responsibility for valuables. - Please leave all valuables, including medications, at home the day of surgery. If you are going home after surgery, a licensed local company truck driver must drive you home. - NO public transportation without another adult. - We recommend that an adult stay with you for 24 hours following discharge. - We also recommend that you do not drive, make important decision, drink alcoholic beverages, or take any drugs that were not prescribed by your health care provider for at least 24 hours after your discharge time. For Pediatric surgeries, we recommend two adults accompany the child home (only one inside the building at this time). Follow any additional instructions given to you from your surgeon. If you or anyone in your household have experienced Covid symptoms in the past week, please notify your surgeon or the nurse liaison at the phone number below for possible testing. Telephone instructions given to TRICE BALDWIN and asked if any additional questions and then verbalized understanding. Patient advised to call surgeon office or pre surgery nurse liaison [phone] if any additional questions.
[2022-05-13 16:08] VITALS: BMI 25.1
--- NOTE | 2022-05-20 14:54 | P.PNAN_ITS ---
Anes - Initial Pre Proc Eval Procedure: Operation Date: 05/21/22 11:30 Proposed Procedures p Left Extracorporeal Shock Wave Lithotripsy - Mohit Boo MD Date/Time: 05/20/22 14:54 Surgeon: Mohit Boo MD Pre Op Diagnosis: bilat kidney stones Patient Data Age: 52 Gender: M Height: 1.78 m Weight: 79.5 kg Allergies Allergy/AdvReac Type Severity Reaction Status Date / Time No Known Allergies Allergy Verified 05/13/22 16:03 Home Medications Medication Instructions Recorded Confirmed Type hydrocodone 5 mg-acetaminophen 325 1 - 2 tablet PO Q6H PRN pain #20 01/30/21 05/13/22 Rx mg tablet tabs atorvastatin 80 mg tablet 80 mg PO DAILY 05/13/22 05/13/22 History Patient hx anesthesia problems: none Family hx anesthesia problems: none Results Review: All pre-operative results and documents have been reviewed as part of the pre- operative evaluation. [facility] Past Medical History Medical History (Updated 05/20/22 @ 14:54 by Raghavendra Donohue MD) History of hyperlipidemia Nephrolithiasis Family History Family History Mother Patient's mother is in good health Sibling Patient's sister is in good health Patient's brother is in good health Father Family history of malignant neoplasm Patient's father is Social History Social History Smoking packs per day: 1 Smoking cigarettes per day: 20.0 Years smoked: 20 Smoking pack-years: 20.00 Smoking status: Current every day smoker Tobacco type: cigarettes Alcohol intake: current Drinks per week: 10 Substance use: never Substance use type: does not use Spiritual care concerns: No Anes - Eval Final PreProcedure Day of Procedure 05/20/22 14:54 Patient weight: normal Heart: regular rate and rhythm Lungs: clear to auscultation and normal air movement Airway: Mallampati scale class II Neurological: alert and oriented Last oral intake: >/= 8 hours ASA classification: II Emergent: no Anesthetic plan: proceed Anesthesia type and monitoring: general LMA and standard monitoring Results Review: All pre-operative results and documents have been reviewed as part of the pre- operative evaluation. Informed Consent: The patient's anesthetic plan and its attendant risks and benefits were discussed with the patient/family/POA. Questions were solicited and answers provided to the satisfaction of the patient/family/POA.
[2022-05-21] VITALS (7 sets, daily range): BP systolic 115–151; BP diastolic 70–85; PULSE 62–82; RESP 14–18; TEMP 36.1–36.7; O2SAT 98–100
--- NOTE | ~2022-05-21 | XR_ITS ---
. EXAMINATION: XR abdomen/kub 1V DATE: 05/21/2022 09:51 INDICATION: Kidney stone. TECHNIQUE: A supine view of the abdomen on 2 radiographs was obtained. COMPARISON: Abdomen radiographs 04/08/2022, CT abdomen and pelvis 04/08/2022 FINDINGS: There are no dilated loops of bowel. There is a small volume of stool in the colon. There a re phleboliths in the pelvis. There is a 5 mm stone in right kidney. There are 5 mm and 8 mm stones i n left kidney. IMPRESSION: 1. Bilateral kidney stones. Reviewed, dictated and finalized at location A. IMPRESSION: 1. Bilateral kidney stones.
--- NOTE | 2022-05-21 06:59 | WPDHPUPDATE1 ---
History and Physical Update Update Date/Time: 05/21/22 06:59 History and Physical has been reviewed, including an updated exam of the patient. There are NO changes in the patient's condition. Risks, benefits, and alternatives have been discussed and questions answered. Patient agrees to proceed with procedure.
[2022-05-21] MEDS: LACTATED RINGERS 1,000 ML 30 ML IV CONT ×2 (10:15→12:09)
[2022-05-21] MEDS: ceFAZolin 2 GM/D5W 50 ML 2 GM/50 ML BAG IVPB (11:24)
--- NOTE | 2022-05-21 11:44 | W.PM.PROC2 ---
Procedure Note - Detailed Date of Procedure 05/21/22 Pre-op Diagnosis Bilat kidney stones Post-op Diagnosis Same Procedure Performed Left ESWL Surgeon Mohit Boo MD Description of Procedure The patient was brought to the operative suite where he was placed in the supine position on the Dornier lithotripsy table. Focal point of the Lithotripter was 1st placed an 8 mm stone in the mid pole calyx. That side a total 1800 shocks were power setting of 4. Then treated the smaller stone below 7 shocks at the same power setting. A total of 2500 shocks were delivered at a power setting of 4. There appeared to be good fragmentation of the stone. The patient tolerated the procedure well and was taken to the recovery room in good condition. Drains No Packing No Pathology None sent Complications None
== END 2022-05-21 13:35 | disposition home or self-care (01) ==
PROVIDERS: PCP Physician Assistant; Visit Provider Urology
PROC: (CPT 50590; principal; 2022-05-21 11:30)
DX: N20.0 Calculus of kidney (principal); E78.5 Hyperlipidemia, unspecified; F17.210 Nicotine dependence, cigarettes, uncomplicated; R97.20 Elevated prostate specific antigen [PSA]
CPT/HCPCS: 50590; 36415; 74018; 85610; 85730; 87086; J0690; J1100; J2250; J2405; J2704; J3010; J7120

== ENCOUNTER → 2022-06-05 10:24 | Outpatient (CLI) | payer OTHER, SELFPAY ==
--- NOTE | ~2022-06-05 | XR_ITS ---
EXAM: XR abdomen/kub 1V DATE: 06/05/2022 10:57 HISTORY: N20.0 - Calculus of kidney . COMPARISON: 05/21/2022. FINDINGS: Normal bowel gas pattern. No organomegaly. Stable bilateral renal calcifications. Pelvic p hleboliths. Regional bones and soft tissues normal for age. IMPRESSION: Stable bilateral nephrolithiasis. Reviewed, dictated and finalized at location K.
== END ==
PROVIDERS: PCP Physician Assistant; Visit Provider Urology
DX: N20.0 Calculus of kidney (principal)
CPT/HCPCS: 74018

== ENCOUNTER 2023-02-21 11:39 | Emergency (ER) | payer OTHER, SELFPAY ==
--- NOTE | ~2023-02-21 | XR_ITS ---
EXAMINATION: XR ribs RT 2V w CXR 2V DATE: 02/21/2023 12:01 INDICATION: Follow from stairs. TECHNIQUE: Frontal and lateral views of the chest and 2 views on 3 radiographs of the right ribs were obtained. COMPARISON: Chest 2 views 03/25/2016 FINDINGS: CHEST TWO VIEWS: There is mild atelectasis at left lung base. There is stable mild scarring at the jazmyn ng apices. No pleural effusion or pneumothorax. The heart size is normal. RIGHT RIBS: There are fractures of right 10th and 11th ribs. IMPRESSION: 1. Acute fractures of right 10th and 11th ribs. Reviewed, dictated and finalized at location A.
[2023-02-21 11:47] VITALS: BP 141/92; PULSE 84; RESP 12; TEMP 37.3; O2SAT 98
--- NOTE | 2023-02-21 11:51 | ED.GENADULT ---
HPI - General Adult General Chief complaint: Wound/Laceration Stated complaint: Right Abdomen Pain Source: patient Mode of arrival: ambulatory Limitations: no limitations History of Present Illness HPI narrative: 53 y/o male presented for c/o right rib pain after fall 2 days ago. States he slipped walking out of a [facility] stairs and landed on his right hip and struck the right lower ribs on a stair corner as well. He denies shortness of breath, wheezing, hemoptysis, nausea, vomiting. Denies leg numbness, tingling, or weakness. He denies hitting his head or loss of consciousness. He has taken ibuprofen and left over hydrocodone for symptoms. He returned home from [facility] for evaluation. Related Data Home Medications Medication Instructions Recorded Confirmed atorvastatin 80 mg tablet 80 mg PO DAILY 05/13/22 02/21/23 Allergies Allergy/AdvReac Type Severity Reaction Status Date / Time No Known Allergies Allergy Verified 02/21/23 12:04 Review of Systems Review of Systems: CONSTITUTIONAL: Denies body aches, fever, chills EYES: Denies visual changes CARDIOVASCULAR: Denies chest pain, palpitations, or edema. RESPIRATORY: Denies cough or dyspnea. GASTROINTESTINAL: Denies abdominal pain, nausea, vomiting, or diarrhea. SKIN: Denies rash, itching, or wounds. MUSCULOSKELETAL: reports right back/rib pain NEUROLOGIC: Denies headache, numbness, tingling, or weakness. All systems reviewed & are unremarkable except as noted in HPI and below PMFSH Past Medical History Medical History History of hyperlipidemia Nephrolithiasis Family History Family History Mother Patient's mother is in good health Sibling Patient's sister is in good health Patient's brother is in good health Father Family history of malignant neoplasm Patient's father is Social History Social History Smoking packs per day: 1 Smoking cigarettes per day: 20.0 Years smoked: 20 Smoking pack-years: 20.00 Smoking status: Current every day smoker Tobacco type: cigarettes Alcohol intake: current Drinks per week: 10 Substance use: never Substance use type: does not use Living arrangements: with family Spiritual care concerns: No Comments At time of signature, I have reviewed and agree with nursing past medical, surgical, social and family history unless otherwise noted. Please see nursing chart for further information. There is no relevant family history pertinent to the presenting complaint Exam Narrative: GENERAL: Appears in pain, in no acute distress. HEAD: Normocephalic, atraumatic. EYES: conjunctivae clear NECK: Supple. full ROM CHEST: Speaks in full sentences. No respiratory distress.Lungs clear bilaterally. HEART: Regular rate and rhythm. Normal and equal peripheral pulses. MUSC: Right lateral lower ribs with area of abrasions and bruising, tender 10th/11th lateral ribs. No Vertebral point tenderness. BLEs with normal strength and sensation, normal range of motion endorses pain to right ribs with movement. No obvious deformity; pulse palpable and equal bilaterally, skin warm, dry, pink. Capillary refill less than 3 seconds. Gait steady. SKIN: Warm, dry NEURO: Alert and oriented x3. Course Course Emergency Course: Patient is aware of diagnosis, understands and agrees to treatment plan. Anticipatory guidance given. Patient agrees to follow-up as directed and is aware of reasons to seek care at the emergency department. Portions of this record may have been created with voice recognition software Level of Care: Express Care Visit Vital Signs Vital signs: Vital Signs Temperature 99.2 F 02/21/23 11:47 Pulse Rate 84 02/21/23 11:47 Respiratory Rate 12 02/21/23 11:47 Blood Pressure 141/92 H
== END 2023-02-21 12:45 | disposition home or self-care (01) ==
PROVIDERS: Emergency Provider Nurse Practitioner Family; PCP Physician Assistant
DX: S22.41XA Multiple fractures of ribs, right side, initial encounter for closed fracture (principal); W10.9XXA Fall (on) (from) unspecified stairs and steps, initial encounter; E78.5 Hyperlipidemia, unspecified; F17.210 Nicotine dependence, cigarettes, uncomplicated
CPT/HCPCS: 71046; 71100; 99213; G0463

== ENCOUNTER 2023-06-22 08:43 | Outpatient (CLI) | payer OTHER, SELFPAY ==
--- NOTE | ~2023-06-22 | XR_ITS ---
EXAMINATION: XR abdomen/kub 1V DATE: 06/22/2023 09:21 INDICATION: Bilateral nephrolithiasis. TECHNIQUE: A supine view of the abdomen on 2 radiographs was obtained. COMPARISON: Abdomen radiographs 06/05/2022 FINDINGS: There are no dilated loops of bowel. There are phleboliths in the pelvis. The kidneys are o bscured by bowel. There is a 5 mm stone in right kidney. There are 2 stones in left kidney measuring up to 6 mm. IMPRESSION: 1. Bilateral kidney stones. Reviewed, dictated and finalized at location E. IMPRESSION: 1. Bilateral kidney stones.
[2023-06-22 09:17] LABS: Hematocrit 48.2 % (42.0-52.0); Hemoglobin 16.1 g/dL (14.0-18.0)
[2023-06-25 12:53] LABS: Testosterone Total 415 ng/dL (250-1100)
[2023-06-26 22:10] LABS: FSH 8.2 mIU/mL (1.6-8.0); LH 4.8 mIU/mL (1.5-9.3); Prolactin 6.1 ng/mL (***)
[2023-06-29 20:42] LABS: Estradiol, Ultrasensitive 20 pg/mL (< OR = 29)
== END 2023-06-22 08:44 | disposition home or self-care (01) ==
PROVIDERS: PCP Physician Assistant; Visit Provider Nurse Practitioner Adult Health
DX: E29.1 Testicular hypofunction (principal); N20.0 Calculus of kidney
CPT/HCPCS: 36415; 74018; 82670; 83001; 83002; 84146; 84403; 85014; 85018

== ENCOUNTER 2023-10-11 08:20 | Outpatient (CLI) | payer OTHER, SELFPAY ==
--- NOTE | 2023-10-11 08:32 | ECG_ITS ---
Measurements Intervals [place] Rate: 74 P: 33 SD: 153 QRS: 2 QRSD: 91 T: -3 QT: 334 QTc: 372 Interpretive Statements SINUS RHYTHM DELAYED PRECORDIAL R/S TRANSITION BASELINE ARTIFACT- I, II, III, AVR, AVL, AVF BORDERLINE ECG COMPARED TO ECG 04/08/2022 08:44:21 SINUS RHYTHM NOW PRESENT Electronically Signed On 10-11-2023 8:43:09 TRAFFIC SIGNAL TECHNICIAN by Varun Dior D.O.
[2023-10-11 09:04] LABS: INR 0.9; Prothrombin Time 12.9 Seconds (11.1-14.7)
[2023-10-11 09:05] LABS: Partial Thromboplastin Time 26.3 SECONDS (22.3-36.8)
== END 2023-10-11 08:21 | disposition home or self-care (01) ==
LOC: ANHSURGERY 08:29
PROVIDERS: PCP Physician Assistant; Visit Provider Urology
DX: Z01.818 Encounter for other preprocedural examination (principal); N20.0 Calculus of kidney; E78.00 Pure hypercholesterolemia, unspecified; R93.1 Abnormal findings on diagnostic imaging of heart and coronary circulation
CPT/HCPCS: 36415; 85610; 85730; 87086; 93005

== ENCOUNTER 2023-10-21 01:05 | Day surgery (SDC) | payer OTHER, SELFPAY ==
[2023-10-10 14:43] VITALS: BMI 28.7
--- NOTE | 2023-10-10 14:47 | PC.NURSE ---
Report to the Outpatient Waiting Room, entrance under the green pavilion located off [facility], at time 6:45 on date 10/21/23. Planned Procedure Time: 8:45. Time changes happen often and if your time is changed the preop area will call you the afternoon before. - You and your visitor will be asked to self-screen and do not enter if you have any COVID symptoms. - A mask is optional within the hospital at this time. Patients may have clear liquids (water, carbonated beverages, clear teas, apple juice) until 3 hours prior to surgery (5:45) with a maximum of 20 ounces. - No food from midnight until time of surgery Take the following medications with a SIP of water the morning of surgery: NONE DO NOT STOP ANY OF YOUR OTHER PRESCRIPTION MEDICATIONS PRIOR TO SURGERY ?EXCEPT THE FOLLOWING Medications to discontinue per physician: IBUPROFEN Date to take last dose: 7 DAYS BEFORE SURGERY OR PER DR. HERBERT Please no make-up, nail sinhala, hairspray, perfume, deodorant, or body powder the day of surgery. No jewelry (including any body piercings) or valuables the day of surgery, leave them at home. Please take a shower or bath the night before, or the morning of, surgery with an antibacterial soap. Wear comfortable, loose fitting clothing. - Jewelry must be removed prior to entering the operating room. Rings and piercings that are not removed may be cut off. - The hospital will not accept responsibility for valuables. - Please leave all valuables, including medications, at home the day of surgery. If you are going home after surgery, a licensed car driver must drive you home. - NO public transportation without another adult if you receive anesthesia. - We recommend that an adult stay with you for 24 hours following discharge. - We also recommend that you do not drive, make important decision, drink alcoholic beverages, or take any drugs that were not prescribed by your health care provider for at least 24 hours after your discharge time. Follow any additional instructions given to you from your surgeon. If you or anyone in your household have experienced Covid symptoms in the past week, please notify your surgeon or the nurse liaison at the phone number below for possible testing. Telephone instructions given to PT - BRIAN BALDWIN and asked if any additional questions and then verbalized understanding. Patient advised to call surgeon office or pre surgery nurse liaison [phone] if any additional questions.
--- NOTE | 2023-10-14 07:49 | P.HP_ITS ---
History of Present Illness History of Present Illness Consent: Risks, benefits, and alternatives have been discussed and questions answered. Patient agrees to proceed with procedure. Chief complaint: bilateral renal kidney stones Narrative: Ramon Harris is a 53 year old male who is known to have urolithiasis in the past and underwent ESWL in May 2022. Had some residual stone fragments on the left which were followed. These have now grown and because slightly symptomatic. Recent KUB shows bilateral stones with greater stone burden on the left. He is elected for left ESWL. He is aware of the risks including, but not limited to, adverse cardiopulmonary events, hematuria and perinephric hematoma. He is also aware he may need additional procedures to render himself stone free Review of Systems Review of Systems: All systems reviewed & are unremarkable except as noted in HPI and below PMFSH Past Medical History Medical History History of hyperlipidemia Nephrolithiasis Family History Family History Mother Patient's mother is in good health Sibling Patient's sister is in good health Patient's brother is in good health Father Family history of malignant neoplasm Patient's father is Social History Social History Smoking packs per day: 1 Smoking cigarettes per day: 20.0 Years smoked: 25 Smoking pack-years: 25.00 Smoking status: Former smoker Tobacco type: cigarettes Smoking end date: 09/26/22 Alcohol intake: current Drinks per week: 12 Substance use: never Substance use type: does not use Living arrangements: with family Spiritual care concerns: No Meds Home Medications and Allergies Home Medications Medication Instructions Recorded Confirmed Type atorvastatin 80 mg tablet 80 mg PO DAILY 05/13/22 10/10/23 History ibuprofen 800 mg tablet 800 mg PO TID PRN pain #20 tabs 02/21/23 10/10/23 Rx Allergies Allergy/AdvReac Type Severity Reaction Status Date / Time No Known Allergies Allergy Verified 10/10/23 14:41 Exam Const: General: no acute distress Resp: Effort & Inspection: normal respiratory effort GI: Inspection: non-distended GI Palp: No abdominal tenderness and No Guarding due to palpation present (GI) Auscultation: normal bowel sounds Assessment and Plan Assessment and plan (1) Bilateral kidney stones: Code(s): N20.0 - Calculus of kidney Status: Acute Assessment and Plan: * Left ESWL
[2023-10-21] VITALS (7 sets, daily range): BP systolic 113–142; BP diastolic 63–94; PULSE 65–96; RESP 11–14; TEMP 36.2–36.6; O2SAT 94–98
--- NOTE | ~2023-10-21 | XR_ITS ---
Supine and upright views of the abdomen Clinical history: Lithotripsy COMPARISON: 06/22/2023 Findings: Bowel gas pattern is nonspecific. No evidence for obstruction or free air. There are bilate ral renal stones, largest measuring approximately 5 mm. Osseous structures are intact. Impression: Bilateral nephrolithiasis, as above. Reviewed, dictated and finalized at [facility]. [employer]PER[employer]OR Impression: Bilateral nephrolithiasis, as above.
--- NOTE | 2023-10-21 06:32 | WPDHPUPDATE1 ---
History and Physical Update Update Date/Time: 10/21/23 06:32 History and Physical has been reviewed, including an updated exam of the patient. There are NO changes in the patient's condition. Risks, benefits, and alternatives have been discussed and questions answered. Patient agrees to proceed with procedure.
[2023-10-21] MEDS: LACTATED RINGERS 1,000 ML 30 ML IV CONT (07:00)
--- NOTE | 2023-10-21 07:47 | WPDANESEPPF ---
Anes - Initial Pre Proc Eval Procedure: Operation Date: 10/21/23 08:45 Proposed Procedures p Left Extracorporeal Shock Wave Lithotripsy - Mohit Boo MD Date/Time: 10/21/23 07:47 Surgeon: Mohit Boo MD Pre Op Diagnosis: bilateral renal kidney stones Patient Data Age: 53 Gender: M Height: 1.78 m Weight: 89.2 kg Last Vital Signs Temp 36.6 C 10/21/23 07:00 Pulse 77 10/21/23 07:00 Resp 14 10/21/23 07:00 BP 114/82 10/21/23 07:00 Pulse Ox 98 10/21/23 07:00 O2 Del Method Room Air 10/21/23 07:00 Allergies Allergy/AdvReac Type Severity Reaction Status Date / Time No Known Allergies Allergy Verified 10/21/23 07:28 Home Medications Medication Instructions Recorded Confirmed Type atorvastatin 80 mg tablet 80 mg PO DAILY 05/13/22 10/10/23 History ibuprofen 800 mg tablet 800 mg PO TID PRN pain #20 tabs 02/21/23 10/10/23 Rx Patient hx anesthesia problems: none Family hx anesthesia problems: none Results Review: All pre-operative results and documents have been reviewed as part of the pre-operative evaluation. ON LICENSE OF [facility] Past Medical History Medical History History of hyperlipidemia Nephrolithiasis Surgical History Surgical History (Updated 10/21/23 @ 07:48 by Hieu Danielson MD) H/O lithotripsy Family History Family History Mother Patient's mother is in good health Sibling Patient's sister is in good health Patient's brother is in good health Father Family history of malignant neoplasm Patient's father is Social History Social History Smoking packs per day: 1 Smoking cigarettes per day: 20.0 Years smoked: 25 Smoking pack-years: 25.00 Smoking status: Former smoker Tobacco type: cigarettes Smoking end date: 09/26/22 Alcohol intake: current Drinks per week: 12 Substance use: never Substance use type: does not use Living arrangements: with family Spiritual care concerns: No Anes - Eval Final PreProcedure Day of Procedure 10/21/23 07:47 Patient weight: overweight Heart: regular rate and rhythm Lungs: clear to auscultation Airway: Mallampati scale class II Neurological: alert and oriented Last oral intake: >/= 8 hours ASA classification: II Emergent: no Anesthetic plan: proceed Anesthesia type and monitoring: general GIVS and standard monitoring Results Review: All pre-operative results and documents have been reviewed as part of the pre-operative evaluation. Informed Consent: The patient's anesthetic plan and its attendant risks and benefits were discussed with the patient/family/POA. Questions were solicited and answers provided to the satisfaction of the patient/family/POA.
[2023-10-21] MEDS: ceFAZolin 2 GM/D5W 50 ML 2 GM/50 ML BAG IVPB (08:34)
--- NOTE | 2023-10-21 08:44 | W.PM.PROC2 ---
Procedure Note - Detailed Date of Procedure 10/21/23 Pre-op Diagnosis Bilateral kidney stones Post-op Diagnosis Same Procedure Performed Left ESWL Surgeon Mohit Boo MD Anesthesia General Description of Procedure The patient was brought to the operative suite where he was placed in the supine position on the Dornier lithotripsy table. The focal point of the lithotripter was placed at at 2 calculi in left kidney (5mm and 3mm). A total of 2500 shocks were delivered at a power setting of 4 - splitting the shocks between the 2 stones. There appeared to be good fragmentation of the stone. The patient tolerated the procedure well and was taken to the recovery room in good condition. Drains No Packing No Pathology None sent Complications No immediate complications Condition Stable Disposition PACU
== END 2023-10-21 11:02 | disposition home or self-care (01) ==
PROVIDERS: PCP Physician Assistant; Visit Provider Urology
PROC: (CPT 50590; principal; 2023-10-21 08:45)
DX: N20.0 Calculus of kidney (principal); Z87.891 Personal history of nicotine dependence
CPT/HCPCS: 50590; 36415; 74018; 85610; 85730; 87086; 93005; J0690; J1100; J1596; J2250; J2405; J2704; J3010; J7120

== ENCOUNTER 2024-04-17 10:28 | Emergency (ER) | payer OTHER, SELFPAY ==
[2024-04-17] VITALS (19 sets, daily range): BP systolic 104–131; BP diastolic 77–87; PULSE 79–122; RESP 18–28; TEMP 37.1; O2SAT 95–100
--- NOTE | ~2024-04-17 | CT_ITS ---
EXAMINATION: CT abdomen pelvis w con DATE: 04/17/2024 12:51 INDICATION: Lower abdominal pain. Urinary retention. TECHNIQUE: Computed tomography (CT) of the abdomen and pelvis was performed with 100 mL Omnipaque-350 intravenous contrast. Automated exposure control and iterative reconstruction technique were employe d. The dose-length product was 621.56 mGy-cm. COMPARISON: None FINDINGS: Mild dependent atelectasis in bilateral lower lobes. Heart size is normal. No pericardial or pleural effusion. Liver, gallbladder, spleen, pancreas, bilateral adrenal glands are normal. Bilateral nonobs tructing nephrolithiasis with 6 mm stone in the right kidney and 7 mm and 5 mm stones in the left kid srinivasan. No ureteral stones or hydronephrosis. Subtle haziness to the fat surrounding the bladder and muc osal hyperemia raising suspicion for cystitis. Prostatomegaly measuring 4.9 x 4.3 cm. Bowels includin g the appendix are normal. No free intraperitoneal gas or fluid. No pathologically enlarged abdominal or pelvic lymphadenopathy. Mild lumbar and lower thoracic spondylosis. IMPRESSION: 1. Subtle haziness to the fat surrounding the bladder and mucosal hyperemia spacing concern for cysti tis. Correlate with urinalysis. 2. Prostatomegaly. 3. Bilateral nonobstructing nephrolithiasis. Reviewed, dictated and finalized at location [facility]. IMPRESSION: 1. Subtle haziness to the fat surrounding the bladder and mucosal hyperemia spa cing concern for cystitis. Correlate with urinalysis. 2. Prostatomegaly. 3. Bilateral nonobstructing nephrolithiasis.
[2024-04-17 11:56] LABS: Appearance Urine Cloudy (Clear); Bacteria Urine 4+ /hpf; Bilirubin Urine Negative (Negative); Blood Urine 2+ (Negative); Color Urine Dark Yellow (Yellow); Glucose Urine UA Trace mg/dL (Negative); Ketones Urine Trace mg/dL (Negative); Leukocyte Esterase Ur 2+ LEU/UL (Negative); Need Manual Microscopic Reviewed; Nitrate Urine Positive (Negative); Non Pathogenic Casts 0-2; Protein Urine 2+ mg/dL (Negative); Specific Grav Ur 1.027 (1.001-1.035); Squamous Epithelial Cell Urine None Seen /hpf (Few); WBC Urine >100 /hpf (0-3); pH Urine 5.5 (5.0-9.0)
[2024-04-17 11:59] LABS: Add Urine Microscopic? YES
[2024-04-17] MEDS: SODIUM CHLORIDE 0.9% IV 1,000 ML 999 ML IV CONT ×2 (12:10→12:40)
[2024-04-17] MEDS: KETOROLAC 30 MG/ML VIAL (*BKC) IV PUSH (12:11)
[2024-04-17 12:16] LABS: Basophils Percent Auto 0.1 % (0.2-1.2); Eosinophils Absolute Auto 0.1 K/mm3 (0-0.3); Eosinophils Percent Auto 0.9 % (0-4.4); Hematocrit 44.9 % (42.0-52.0); Hemoglobin 15.1 g/dL (14.0-18.0); Immature Granulocyte Absolute 0.03 K/mm3 (0.00-0.031); Immature Granulocyte Percent A 0.4 % (0-0.5); Lymphocytes Percent Auto 8.6 % (18.3-44.2); Mean Corpuscular HGB Conc 33.6 g/dl (32-36); Mean Corpuscular Hemoglobin 32.1 pg (26-34); Mean Corpuscular Volume 95.5 fl (80-100); Mean Platelet Volume 9.4 fl (7.4-10.4); Monocytes Absolute Auto 0.5 K/mm3 (0.1-0.6); Monocytes Percent Auto 6.4 % (2.6-8.5); Neutrophils Absolute Auto 6.8 K/mm3 (1.3-6.7); Neutrophils Percent Auto 83.6 % (45.5-73.1); Platelet Count Result 174 k/mm3 (150-375); Red Cell Distribution Width 12.9 % (11.5-14.5); White Blood Count 8.1 K/mm3 (4.5-10.0)
[2024-04-17 12:31] LABS: Alanine Aminotransferase 21 U/L (6-50); Albumin Level 4.1 g/dL (3.5-5.1); Alkaline Phosphatase 80 U/L (38-126); Anion Gap 9 mmol/L (4-12); Aspartate Amino Transferase 21 U/L (17-59); Bilirubin,Total 0.6 mg/dL (0.2-1.3); Blood Urea Nitrogen 12 mg/dL (9-20); Calcium 8.8 mg/dL (8.4-10.2); Carbon Dioxide 24 mmol/L (22-30); Chloride 101 mmol/L (98-107); Estimated CRCL calculation 87 ml/min; Estimated Glomerular Filt Rate > 60; Glucose 110 mg/dL (65-110); Lipase 49 U/L (23-300); Potassium 4.2 mmol/L (3.4-5.0); Sodium 134 mmol/L (137-145)
--- NOTE | 2024-04-17 12:49 | ED.GENADULT ---
HPI - General Adult General Chief complaint: Urogenital-Male Stated complaint: unable to urinate/fever Time Seen by Provider: 04/17/24 11:29 Source: patient Mode of arrival: ambulatory Limitations: no limitations History of Present Illness HPI narrative: This is a 54-year-old male with PMH of nephrolithiasis, UTI, sepsis who presents to the ED with chief complaint of subjective fevers, body aches and urinary retention. Reports that he just got back from a camping trip this and Tuesday night he started feeling unwell. Today he reports he was very difficult to urinate. There is some pressure in the groin with urination and is only able to dribble out a little bit. states he has had UTIs and kidney stones in the past. Denies flank pain or abdominal pain today. endorses poor appetite but denies vomiting or diarrhea. Denies chest pain, shortness of breath syncope is weakness. Related Data Home Medications Medication Instructions Recorded Confirmed atorvastatin 80 mg tablet 80 mg PO DAILY 05/13/22 10/10/23 Allergies Allergy/AdvReac Type Severity Reaction Status Date / Time No Known Allergies Allergy Verified 04/17/24 11:04 Review of Systems Review of Systems: All systems as dictated in HPI REPLACED BY [facility] Past Medical History Medical History (Updated 04/17/24 @ 13:33 by Prasanth Matos PA-C) History of hyperlipidemia Nephrolithiasis Surgical History Surgical History (Updated 10/21/23 @ 07:48 by Hieu Danielson MD) H/O lithotripsy Family History Family History Mother Patient's mother is in good health Sibling Patient's sister is in good health Patient's brother is in good health Father Family history of malignant neoplasm Patient's father is Social History Social History Smoking packs per day: 1 Smoking cigarettes per day: 20.0 Years smoked: 25 Smoking pack-years: 25.00 Smoking status: Former smoker Tobacco type: cigarettes Smoking end date: 09/26/22 Alcohol intake: current Drinks per week: 12 Substance use: never Substance use type: does not use Living arrangements: with family Spiritual care concerns: No Exam Narrative: GENERAL: Well-appearing, well-nourished, and in no acute distress. HEAD: Normocephalic, atraumatic. EYES: PERRLA and EOMI. ENT: Nares clear, no rhinorrhea or epistaxis. Mucous membranes moist. Oropharynx without tonsillar hypertrophy exudate or other lesions. NECK: Supple. No adenopathy or masses. CHEST: No respiratory distress. Clear to auscultation. No wheezes rales or rhonchi HEART: Regular rate and rhythm. No murmur heard. Normal peripheral pulses. ABDOMEN: Soft, nontender, nondistended, normal active bowel sounds. Negative flank tenderness bilaterally MSK: Normal range of motion. No edema. SKIN: Warm, dry, no rash. NEURO: Alert and oriented x4. No focal deficits. PSYCH: Normal mood and affect. Course Vital Signs Vital signs: Vital Signs Temperature 98.7 F 04/17/24 10:48 Pulse Rate 122 H 04/17/24 10:48 Respiratory Rate 20 04/17/24 10:48 Blood Pressure 104/79 04/17/24 10:48 Pulse Oximetry 99 04/17/24 10:48 Oxygen Delivery Room Air 04/17/24 10:48 Temperature 98.7 F 04/17/24 10:48 Pulse Rate 80 04/17/24 14:00 Respiratory Rate 24 H 04/17/24 14:00 Blood Pressure 131/77 04/17/24 12:01 Pulse Oximetry 99 04/17/24 14:00 Oxygen Delivery Room Air 04/17/24 10:48 Medical Decision Making [facility] Narrative Medical decision making narrative: This is a 54-year-old male who presents to the ED for chief complaint of urinary retention, body aches and chills. Vitals show initial tachycardia but hemodynamically stable. Exam remarkable for the above. Lab work showing normal white count on CBC. CMP unremarkable. Urinalysis remarkable for nitrite positi
== END 2024-04-17 14:28 | disposition home or self-care (01) ==
PROVIDERS: Student in an Organized Health Care Education/Training Program; Emergency Provider Physician Assistant; PCP Physician Assistant
DX: N39.0 Urinary tract infection, site not specified (principal); E78.5 Hyperlipidemia, unspecified; Z87.891 Personal history of nicotine dependence
CPT/HCPCS: 36415; 74177; 80053; 81001; 83690; 85025; 87077; 87086; 87088; 87186; 96361; 96365; 96375; 99284; J0696; J1885; J7030; Q9967

== ENCOUNTER 2025-09-02 10:00 | Outpatient (CLI) | payer OTHER, SELFPAY ==
--- NOTE | ~2025-09-02 | XR_ITS ---
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 Technique: 3 view. Findings: Bowel gas pattern unremarkable. No obstruction. There are bilateral renal calculi the largest right kidney midpole 3 mm, the largest left kidney midpole 4 x 4 millimeters. No acute osseous abnormality. Impression: 1. Bilateral renal calculi Reviewed, dictated and finalized at location [facility]. S SETTER Impression: 1. Bilateral renal calculi
== END 2025-09-02 10:01 | disposition home or self-care (01) ==
LOC: MICIMG 10:04
PROVIDERS: PCP Urology; Visit Provider Urology
DX: N20.0 Calculus of kidney (principal)
CPT/HCPCS: 74018